=== PATIENT | female | born 1995 | race Caucasian/White ===

== ENCOUNTER → 2018-08-12 | Outpatient (CLI) | payer OTHER ==
[2018-08-12 14:55] VITALS: BP 112/65; PULSE 75; TEMP 97.1; BMI 22.9
--- NOTE | 2018-08-12 15:59 | P.HPOB ---
History of Present Illness H&P Date: 08/12/18 Chief Complaint: Significant fatigue since one month ago. This is a 23-year-old G0 with an LMP of 07/20/2018 who is on oral contraception for control. She is new to this office. She states she was seen in [place] in December 2017 for her preventative well woman exam. She states she had a pelvic exam, Pap smear and screening for GC and chlamydia. She states all test results were normal. She has been on oral contraception since high school. She states about 1 month ago she started feeling very fatigued, exhausted, and the drowsy. This is not typical for her. She graduated earlier this year from college. 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 She had a rough time in October of this year when she broke up with her boyfriend. She briefly used Zoloft during this rough time. She states her fatigue and exhaustion is very different from October when she was sad after the breakup. She denies sadness or depression currently. She states she has been eating well and continues to be active. She does have a new boyfriend during the past 6 weeks and has been sexually active with him. She states she has been consistently using condoms with sexual activity. During the past one week, the fatigue seems to be slightly better. She denies fever, palpable lymph nodes, sore throat or urinary symptoms. Review of Systems The patient has gained 10-15nds over the7 months. She attributes this to less physical exertion after graduation since she was playing a college varsity sport prior to graduation. She denies respiratory, cardiac, or G.I. problems. Also see the HPI. Past Medical History Past Medical History: No Reported History Additional Past Medical History / Comment(s): Intermittent chronic hives prior to age 20. She denies hives after age 20. History of Any Multi-Drug Resistant Organisms: None Reported Past Surgical History: Tonsillectomy Additional Past Surgical History / Comment(s): BILATERAL MYRINGOTOMY AND TUBES. [place] teeth removed. Past Anesthesia/Blood Transfusion Reactions: No Reported Reaction Past Psychological History: No Psychological Hx Reported Smoking Status: Never smoker Past Alcohol Use History: Occasional (4-6/week.) Past Drug Use History: Marijuana (Rare usage.) Additional History: She is planning to start grad school at [employer]. She has 2 jobs teaching tennis. She is currently living with her parents. She has been with her current boyfriend since June 2018. She has had 5 sexual partners in her lifetime. - Past Family History Mother Family Medical History: No Reported History Medications and Allergies Home Medications and Allergies Comment(s): The brand name of her oral contraception is Levonor. Home Medications Medication Instructions Recorded Confirmed Type Levonorgestrel-Ethin Estradiol PO DAILY 08/12/18 History [Levora-28 Tablet] Allergies Allergy/AdvReac Type Severity Reaction Status Date / Time No Known Allergies Allergy Verified 08/12/18 14:47 Exam Vital Signs Temp Pulse BP 08/12/18 14:48 97.1 F L 75 112/65 Intake and Output 08/12/18 08/12/18 08/12/18 06:59 14:59 22:59 Other: Weight 62.596 kg Height 5'5", weight 138 pounds, BMI 23.0. This is a well-developed well-nourished white female who is alert and oriented times 3 in no acute distress. HEENT: Within normal limits. NECK: Supple without mass or thyromegaly. There is no palpable adenopathy. CHEST AND LUNGS: Clear to auscultation. HEART: Regular rate and rhythm. BREASTS: deferred BACK: Negative for CVA tenderness. ABDOMEN: Soft, nontender, without palpable masses. There is no organomegaly and the spleen is not palpable. PELVIC EXAM: deferred RECTAL EXAM: deferred EXTREMITIES: Nontender. IMPRESSION: 1. 23-year-old female with a one-month history of fatigue and exhaustion. Differential diagnosis will include thyroid dysfunction, anemia, infectious mononucleosis, viral infection, and less likely mood disorder. 2. No evidence of depression by history or appearance. PLAN: 1. Pap smear, pelvic exam, GC and Chlamydia screening will be deferred since she states she recently had this done in December 2017. Testing was all normal according to the patient. 2. Lab testing will be done today and will include TSH, CBC, comprehensive chem panel, monospot, HIV, RPR, hepatitis B surface antigen, and hepatitis C antibody. 3. STD prevention was discussed. Stressed the importance of limiting sexual partners and using condoms if she is sexually active. 4. I've also stress the importance of good nutrition, regular meals and regular exercise. I've also recommended that she tried to have a regular sleep schedule. I have also recommended that she avoid stimulants to try to increase energy levels. 5. I have recommended that she return in approximately 6 months when she is due for her annual well woman exam.
[2018-08-12 16:14] LABS: Basophils % (A) 0 %; Eosinophils # (A) 0.1 k/uL (0-0.7); Eosinophils % (A) 1 %; HCT 38.8 % (34.0-46.0); HGB 13.5 gm/dL (11.4-16.0); Lymphocytes # (A) 1.7 k/uL (1.0-4.8); Lymphocytes % (A) 21 %; MCH 32.3 pg (25.0-35.0); MCHC 34.8 g/dL (31.0-37.0); MCV 92.8 fL (80.0-100.0); Mean Platelet Volume 6.8; Monocytes # (A) 0.5 k/uL (0-1.0); Monocytes % (A) 6 %; Neutrophils # (A) 5.5 k/uL (1.3-7.7); Neutrophils % (A) 68 %; Platelet Count 282 k/uL (150-450); RBC 4.18 m/uL (3.80-5.40); RDW 12.7 % (11.5-15.5); WBC 8.2 k/uL (3.8-10.6)
[2018-08-13 04:51] LABS: Albumin 4.3 g/dL (3.80-4.90); Albumin/Globulin Ratio 1.95 (1.20-2.10); Anion Gap 9.1 mmol/L (4.00-12.00); Calcium 9.3 mg/dL (8.7-10.3); Carbon Dioxide 23.9 mmol/L (21.6-31.8); Globulin 2.2 g/dL (2.1-3.7); Potassium 4.1 mmol/L (3.5-5.5); Total Bilirubin 0.4 mg/dL (0.3-1.2); Total Protein 6.5 g/dL (6.2-8.2)
[2018-08-13 05:28] LABS: HIV 1 AB Non-Reactive (Non-Reactive); HIV AB P24 Non-Reactive (Non-Reactive); HIV P24 AG Non-Reactive (Non-Reactive)
[2018-08-13 05:40] LABS: Hepatitis C IgG Antibody Non-Reactive (Non-Reactive)
--- NOTE | 2018-08-13 13:56 | P.PN ---
Progress Note - Text Progress Note Date: 08/13/18 OUTPATIENT FOLLOW-UP NOTE TEST(S)/RESULTS: blood test results from 08/12/2018 include normal CBC, normal comprehensive chem panel, normal TSH, normal hetero file antibody, negative HIV , negative hepatitis B surface antigen, neck and have hepatitis C antibody and negative syphilis test. METHOD OF NOTIFICATION: the patient was notified by phone. PATIENT COMMENTS: the patient is happy that this testing was unremarkable. She states she will plan on trying to live a very healthy lifestyle and will try my suggestions as described in yesterday's H&P. DIAGNOSIS: negative blood workup and screening DISCUSSION: we have discussed how we found a definite cause for her fatigue but several things have been ruled out. PLAN: she will return when due for her annual well woman exam. She will also return PRN.
== END ==
LOC: WWCWWP 14:34
PROVIDERS: ATTEND Obstetrics & Gynecology
DX: Z00.00 Encounter for general adult medical examination without abnormal findings (principal); R53.83 Other fatigue; Z11.3 Encounter for screening for infections with a predominantly sexual mode of transmission
CPT/HCPCS: 80053; 84443; 85025; 86308; 86780; 86803; 87340; 87390